=== PATIENT | female | born 1960 | race Caucasian/White ===

== ENCOUNTER 2017-11-18 10:14 | Outpatient (RCR) | payer OTHER, SELFPAY | END 2017-11-19 11:05 | LOC: SP 10:14 | PROVIDERS: Family Provider Family Medicine; PCP Family Medicine; Visit Provider Family Medicine | DX: R13.10 Dysphagia, unspecified (principal) | CPT/HCPCS: 92526 ==

== ENCOUNTER → 2018-10-06 07:24 | Outpatient (CLI) | payer OTHER, SELFPAY ==
[2018-10-06 09:27] LABS: Cholesterol 281 mg/dL (140-199); Glucose 84 mg/dL (70-100); HDL Cholesterol 58 mg/dL (40-60); LDL Cholesterol Calculated 202 mg/dL (<100); Triglycerides 104 mg/dL (35-150)
== END ==
PROVIDERS: Visit Provider Family Medicine
DX: Z13.1 Encounter for screening for diabetes mellitus (principal); Z13.220 Encounter for screening for lipoid disorders
CPT/HCPCS: 36415; 80061; 82947

== ENCOUNTER → 2018-11-13 11:41 | Outpatient (CLI) | payer OTHER, SELFPAY ==
--- NOTE | 2018-11-13 11:45 | DI.MG.S_ITS ---
BILATERAL DIGITAL SCREENING MAMMOGRAM 3D/2D WITH CAD: 11/13/2018 CLINICAL: Routine screening. Comparison is made to exams dated: 07/24/2017 mammogram, 07/23/2016 mammogram, and 03/21/2015 mammogram - [facility]. The tissue of both breasts is heterogeneously dense. This may lower the sensitivity of mammography. Current study was also evaluated with a Computer Aided Detection (CAD) system. There is possible architectural distortion in the right breast at 11 o'clock posterior depth. No other significant masses, calcifications, or other findings are seen in either breast. IMPRESSION: INCOMPLETE: NEEDS ADDITIONAL IMAGING EVALUATION The possible architectural distortion in the right breast is indeterminate. Additional views with possible ultrasound are recommended. This exam was interpreted at Station ID: [id number]. NOTE: For mammograms, a report in lay terms will be sent to the patient. Approximately 15% of breast malignancies will not be visualized mammographically. In the management of a palpable breast mass, a negative mammogram must not discourage biopsy of a clinically suspicious lesion. Electronically Signed By: Stacia giles/minerva:11/13/2018 16:05:36 letter sent: Additional Imaging Needed ACR BI-RADS Category 0: Incomplete 3340F
--- NOTE | 2018-11-13 11:46 | DI.US.S_ITS ---
PROCEDURE: US PELVIC COMPLETE INDICATIONS: ROUTINE SCREENING POST MENOPAUSAL BLEEDING TECHNIQUE: Real-time scanning was performed of the pelvic organs, with image documentation. Additional endovaginal scanning was necessary due to incomplete visualization of the adnexal and endometrial structures by transabdominal scanning. COMPARISON: [facility], US, PELVIC COMPLETE, 06/22/2010, 13:41. FINDINGS: Transabdominal scanning: Limited scanning through the kidneys shows no hydronephrosis. No pathologic free abdominal or pelvic fluid. Endovaginal scanning: Uterus: Prior hysterectomy. Ovaries: Ovaries not identified. No adnexal masses seen. IMPRESSION: Normal exam. Dictated by: Eliel HOANG Interpreted: Martín Zaragoza MD on 11/13/2018 at 13:56 Approved by: Martín Zaragoza M.D. on 11/13/2018 at 15:27
[2018-11-13 13:23] LABS: Cancer Antigen 125 9 U/mL (0-35)
== END ==
PROVIDERS: Obstetrics & Gynecology; PCP Family Medicine; Visit Provider Family Medicine
DX: Z12.31 Encounter for screening mammogram for malignant neoplasm of breast (principal); N95.0 Postmenopausal bleeding
CPT/HCPCS: 36415; 76830; 76856; 77063; 77067; 86304

== ENCOUNTER → 2018-12-11 08:06 | Outpatient (CLI) | payer OTHER, SELFPAY ==
--- NOTE | 2018-12-11 08:07 | DI.MG.S_ITS ---
UNILATERAL RIGHT DIGITAL DIAGNOSTIC MAMMOGRAM 3D/2D WITH ADDITIONAL VIEWS: 12/11/2018 CLINICAL: Additional evaluation requested from prior study. Comparison is made to exams dated: 11/13/2018 mammogram, 07/24/2017 mammogram, 07/23/2016 mammogram, and 03/21/2015 mammogram - [facility]. The tissue of right breast is heterogeneously dense. This may lower the sensitivity of mammography. There is possible architectural distortion in the right breast at 11 o'clock posterior depth. This is not seen on the additional tomosynthesis spot compression views. No other significant masses or calcifications are seen in the breast. IMPRESSION: INCOMPLETE: NEEDS ADDITIONAL IMAGING EVALUATION The possible architectural distortion in the right breast is not seen on the additional tomosynthesis spot compression views. An ultrasound is recommended. This exam was interpreted at Station ID: [id number]. NOTE: For mammograms, a report in lay terms will be sent to the patient. Approximately 15% of breast malignancies will not be visualized mammographically. In the management of a palpable breast mass, a negative mammogram must not discourage biopsy of a clinically suspicious lesion. Electronically Signed By: Steven Orozco M.D. slc/:12/11/2018 09:46:20 ACR BI-RADS Category 0: Incomplete [id number]
--- NOTE | 2018-12-11 08:07 | DI.US.S_ITS ---
LIMITED ULTRASOUND OF RIGHT BREAST: 12/11/2018 CLINICAL: Patient returns today to evaluate an architectural distortion in the right breast. Comparison is made to exams dated: 12/11/2018 mammogram, 11/13/2018 mammogram, 07/24/2017 mammogram, 07/23/2016 mammogram, and 03/21/2015 mammogram - [facility]. Real-time ultrasound of the right breast 8-11 o'clock region was performed in the region of possible architectural distortion seen on prior mammogram. Patiño scale images of the real-time examination were reviewed. No abnormalities were seen sonographically in the right breast. IMPRESSION: NEGATIVE There is no sonographic evidence of malignancy. A 1 year screening mammogram is recommended. This exam was interpreted at Station ID: [id number]. Electronically Signed By: Steven Orozco M.D. slc/:12/11/2018 10:07:57 letter sent: Normal Exam Ultrasound BI-RADS: 1 Negative
== END ==
PROVIDERS: PCP Family Medicine; Visit Provider Family Medicine
DX: R92.8 Other abnormal and inconclusive findings on diagnostic imaging of breast (principal)
CPT/HCPCS: 76642; 77065; G0279

== ENCOUNTER → 2019-03-29 10:39 | Outpatient (CLI) | payer OTHER, SELFPAY ==
--- NOTE | 2019-03-29 10:40 | DI.RAD.S_ITS ---
PROCEDURE: XR KNEE LT 3V INDICATIONS: left knee pain TECHNIQUE: 3 views of the knee were acquired. COMPARISON: [facility], , KNEE 3V LEFT, 03/24/2014, 12:11. FINDINGS: Bones: No fractures or dislocations. No suspicious bony lesions. Mild tricompartmental knee joint degeneration. Soft tissues: No joint effusion. No suspicious soft tissue calcifications. IMPRESSION: Mild degenerative joint disease. Dictated by: Tisha Arreola M.D. on 03/29/2019 at 18:30 Approved by: Tisha Arreola M.D. on 03/29/2019 at 18:31
== END ==
PROVIDERS: PCP Family Medicine; Visit Provider Family Medicine
DX: M25.562 Pain in left knee (principal); M17.12 Unilateral primary osteoarthritis, left knee
CPT/HCPCS: 73562

== ENCOUNTER → 2020-01-20 09:19 | Outpatient (CLI) | payer OTHER, SELFPAY ==
[2020-01-20 09:59] LABS: Add Manual Diff / Slide Review NO; Basophils Absolute Auto 100 /uL (0-100); Basophils Percent Auto 1.2 % (0-2); Eosinophils Absolute Auto 100 /uL (0-450); Eosinophils Percent Auto 2.2 % (2-4); Hematocrit 39.1 % (36-46); Hemoglobin 13.5 g/dL (12.0-16.0); Lymphocytes Absolute Auto 1400 /uL (1100-4500); Mean Corpuscular HGB Conc 34.4 % (30-36); Mean Corpuscular Hemoglobin 29.1 PG (26-34); Mean Corpuscular Volume 84.5 fL (80-100); Monocytes Absolute Auto 400 /uL (0-900); Monocytes Percent Auto 8.8 % (3-14); Neutrophils Absolute Auto 2600 /uL (1500-7000); Neutrophils Percent Auto 56.8 % (50-75); Platelet Count 230 X10^3/uL (150-400); Red Blood Cell Count 4.64 X10^6/uL (4.0-5.2); Red Cell Distribution Width 12.2 % (11.6-14.8); White Blood Cell Count 4.6 X10^3/uL (4.5-11.0)
[2020-01-20 10:20] LABS: Alanine Aminotransferase 20 IU/L (<35); Albumin 4.5 g/dL (3.5-5.0); Albumin Globulin Ratio 1.6 (1.0-2.8); Alkaline Phosphatase 93 U/L (38-126); Aspartate Aminotransferase 25 IU/L (14-36); BUN Creatinine Ratio 21.7 (6-22); Bilirubin Total 0.5 mg/dL (0.2-1.3); Blood Urea Nitrogen 18 mg/dL (7-17); Calcium 9.8 mg/dL (8.4-10.2); Carbon Dioxide 31 mmol/L (22-32); Chloride 105 mmol/L (98-107); Estimated Glomerular Filt Rate > 60.0 mL/min (>60); Globulin 2.9 g/dL (1.7-4.1); Glucose 93 mg/dL (70-100); HEMOLYSIS < 15 (0-50); Potassium 4.6 mmol/L (3.4-5.1); Sodium 140 mmol/L (137-145); Total Protein 7.4 g/dL (6.3-8.2)
[2020-01-20 10:21] LABS: C-Reactive Protein Quant < 0.5 mg/dL (<1.0)
[2020-01-20 10:26] LABS: Erythrocyte Sedimentation Rate 22 MM/HR (0-20)
[2020-01-20 10:47] LABS: TSH w/ Reflex to FT4 3.05 uIU/mL (0.47-4.68)
[2020-01-21 18:00] LABS: Tissue Transglutaminase IgA <2 U/mL (0-3); Tissue Transglutaminase IgG <2 U/mL (0-5)
== END ==
PROVIDERS: PCP Family Medicine; Referring Provider Family Medicine; Visit Provider Family Medicine
DX: K52.9 Noninfective gastroenteritis and colitis, unspecified (principal)
CPT/HCPCS: 36415; 80053; 83516; 84443; 85025; 85651; 86140

== ENCOUNTER → 2020-04-18 07:54 | Outpatient (CLI) | payer OTHER, SELFPAY ==
[2020-04-18 09:00] LABS: Alanine Aminotransferase 14 IU/L (<35); Albumin 3.9 g/dL (3.5-5.0); Albumin Globulin Ratio 1.3 (1.0-2.8); Alkaline Phosphatase 70 U/L (38-126); Aspartate Aminotransferase 24 IU/L (14-36); BUN Creatinine Ratio 23.4 (6-22); Bilirubin Total 0.5 mg/dL (0.2-1.3); Blood Urea Nitrogen 18 mg/dL (7-17); Calcium 9.1 mg/dL (8.4-10.2); Carbon Dioxide 31 mmol/L (22-32); Chloride 107 mmol/L (98-107); Cholesterol 266 mg/dL (140-199); Estimated Glomerular Filt Rate > 60.0 mL/min (>60); Globulin 2.9 g/dL (1.7-4.1); Glucose 92 mg/dL (70-100); HDL Cholesterol 52 mg/dL (40-60); HEMOLYSIS < 15 (0-50); LDL Cholesterol Calculated 193 mg/dL (<100); Potassium 4.5 mmol/L (3.4-5.1); Sodium 139 mmol/L (137-145); Total Protein 6.8 g/dL (6.3-8.2); Triglycerides 105 mg/dL (35-150)
== END ==
PROVIDERS: PCP Family Medicine; Referring Provider Family Medicine; Visit Provider Family Medicine
DX: E78.01 Familial hypercholesterolemia (principal)
CPT/HCPCS: 36415; 80053; 80061

== ENCOUNTER → 2020-08-11 10:45 | Outpatient (CLI) | payer OTHER, SELFPAY ==
[2020-08-11] MEDS: COVID-19 VACC #1, MRNA(MOD) 100 MCG/0.5 ML VIAL IM (10:51)
== END ==
PROVIDERS: PCP Family Medicine; Visit Provider Internal Medicine
DX: Z23 Encounter for immunization (principal)
CPT/HCPCS: 0011A; 91301

== ENCOUNTER → 2020-08-16 09:03 | Outpatient (CLI) | payer OTHER, SELFPAY ==
[2020-08-16 11:07] LABS: COVID19 -Nasal RAPID Negative (Negative)
== END ==
PROVIDERS: PCP Family Medicine; Visit Provider Surgery
DX: Z20.822 Contact with and (suspected) exposure to COVID-19 (principal)
CPT/HCPCS: 87635; C9803

== ENCOUNTER 2020-08-17 07:20 | Day surgery (SDC) | payer OTHER, SELFPAY ==
--- NOTE | 2020-08-17 | PATH_ITS ---
[facility] Accession Number: [id number] . 01 Material submitted: . colon - RANDOM COLON BIOPSIES . 02 Diagnosis: Random Colon, Biopsies: Collagenous colitis. Negative for granulomas, dysplasia and malignancy. [facility] 08/21/2020 1428 Local . 02 Electronically signed: . Keerthi Chavarria MD, Pathologist NPI- [id number] . 01 Gross description: . RANDOM COLON BIOPSIES: Received in formalin are multiple fragment(s) of valle, soft tissue measuring 0.5 x 0.5 x 0.2 cm in aggregate submitted entirely in 1 cassette(s) /QBJ 08/18/2020 0653 Local . 02 Pathologist provided ICD-10: K52.89 . 02 CPT . 883606 Performed at: 01 [facility] [address] [id number] MD Bro Matos MD Phone: [phone] Performed at: 02 [facility] [address] [address] [place], [place] [id number] MD Keerthi Chavarria MD Phone: [phone]
[2020-08-17 07:40] VITALS: BP 146/69; PULSE 57; RESP 16; TEMP 36.3; O2SAT 100; BMI 29.0
[2020-08-17] MEDS: SODIUM CHLORIDE 0.9% 1,000 ML 200 ML IV (08:01)
--- NOTE | 2020-08-17 08:11 | PM.HP.1 ---
History of Present Illness History of Present Illness Date Patient Seen: 08/17/20 Time Patient Seen: 08:11 Chief complaint: SDC Narrative: This is a 60-year-old woman with history of colonoscopy in 2013, with no significant findings per the patient. She was told to have a repeat scope in 5-10 years. Over the past year she has had problems with chronic diarrhea, of unknown etiology. She said she has had ?tons of blood work? does not recall having stool studies or change in medications. She denies melena, hematochezia, unexplained abdominal pain, unexplained weight loss. ROS: Positive for shortness of breath. Thirteen system review is otherwise negative other than as mentioned below and in HPI. PE: GENERAL: Well groomed and cooperative. Appears stated age. Answers questions promptly and appropriately. Vital signs noted. HENT: Normocephalic, atraumatic. Hearing intact. EYES: Conjunctiva pink, sclera white, no periorbital swelling. CARDIOVASCULAR: Regular rate. No pedal edema. RESPIRATORY: Non-tachypneic, breathing comfortably on room air. GASTROINTESTINAL: Abdomen soft and non-distended GENITALURINARY: No flank tenderness. MUSCULOSKELETAL: Equal tone and mass bilaterally. SKIN: Warm, dry, soft, appropriate color for ethnicity. No other lesions, rashes, or wounds. NEURO: Alert and Oriented X 3. No gross sensory deficits, or cognitive issues. PSYCH: Appropriate affect and mood. Patient History Medical History Anxiety Clavicle fracture Depression Familial hypercholesteremia Osteoarthritis Perimenopausal Rib fracture Surgical History Anesthesia History of bilateral tubal ligation (1993) History of colonoscopy with polypectomy (04/04/14) Status post dilation and curettage (07/17/10) Status post laparoscopic supracervical hysterectomy (07/24/10) Status post wrist surgery (2005) Family & Social History Family History Brother Age: 64 High cholesterol Brother Age: 61 High cholesterol Mother Age: 85 Osteoporosis Social History: household members spouse lives independently Yes caregiver/support person No Tobacco & Substance use: Smoking Status Former smoker alcohol intake current alcohol intake frequency a few times a month Substance Use Type does not use Meds Home Medications and Allergies Home Medications Medication Instructions Recorded Confirmed Type venlafaxine 37.5 mg See Rx Instructions .ROUTE 08/07/20 08/17/20 Rx capsule,extended release 24 hr .COMPLEX #30 cap Allergies Allergy/AdvReac Type Severity Reaction Status Date / Time Tetanus Vaccines and Toxoid Allergy Unknown Verified 08/17/20 07:35 [TETANUS VACCINES & TOXOID] clonidine [CLONIDINE] AdvReac Unknown leg Verified 08/17/20 07:35 cramps, nightmares Exam Vital Signs (past 8 hours): - 08/17/20 07:40 Temperature 97.3 F L Pulse Rate 57 L Respiratory Rate 16 Blood Pressure 146/69 H Pulse Oximetry 100 Oxygen Delivery Method Room Air Assessment & Plan Assessment and plan (1) Chronic diarrhea: Status: Acute Assessment & Plan narrative: Risks and benefits of screening colonoscopy and possible polypectomy were discussed with the patient including risk of bleeding, perforation, need for additional procedures, risks of anesthesia. The patient desires to proceed with the colonoscopy procedure. COVID-19 COVID-19 status: Negative Result date/Date tested (Pos, Neg/Pending): 08/16/20 Time Spent With Patient Time with patient: 15-24 minutes Quality VTE Deep Vein Thrombosis/Pulmonary Embolism Present on Admission: No
--- NOTE | 2020-08-17 08:13 | PM.OP.ENDO ---
Operative Date/Time/Diagnoses Date of procedure: 08/17/20 Time of procedure: 08:13 Pre-op diagnosis: Chronic diarrhea, due for screening colonoscopy Post-op diagnosis: other (Normal appearing colon) Procedure & Clinicians Study performed: Colonoscopy Procedural sedation performed by the endoscopist Random biopsies of colon with standard forceps Same procedure as scheduled: Yes Indications: Chronic diarrhea, due for screening colonoscopy Surgeon: Hetal Johnson Procedure Notes SCOAP/Timeout: Performed Procedure in detail: The patient was brought to the room and placed in left lateral decubitus position with all bony prominences padded. A time-out was performed and then the patient was given procedural sedation starting with 4 mg of Versed an100] mcg of fentanyl. An additional 2 mg of Versed and 50 micro g of fentanyl were given during the procedure. Vitals were monitored throughout the procedure and remained stable. Once adequately sedated, the procedure was begun. A rectal exam was performed revealing [no abnormalities. The colonoscope was then introduced to the rectum and advanced to the cecum in the usual fashion.]The cecum was identified by the appendiceal orifice, the mucosal tri-fold, and the ileocecal valve. The scope was then retracted while rotating side to side and examining each mucosal fold. No visible abnormalities were seen in the colon. Random biopsies were taken to rule out microscopic colitis. [ At the conclusion of the procedure retroflexion was performed and moderate grade 2-3 internal hemorrhoids without stigmata of bleeding were seen. The scope was then withdrawn from the rectum the procedure was concluded. The patient tolerated the procedure well and was transferred to the PACU in stable condition. Scope withdrawal time: 6 Sedation minutes: 21 Findings: other findings (Normal appearing colon) Specimen(s): other (Random biopsies) Complications: none Post-procedure Recommendations: Colonscopy in 10 years and Other recommendation (Additional recommendations will be sent to the patient and her primary doctor depending on biopsy results) Follow up: as needed Disposition: PACU
[2020-08-17] MEDS: MIDAZOLAM 5 MG/5 ML VIAL IV (08:31)
[2020-08-17] MEDS: fentaNYL 250 MCG/5 ML INJ IV (08:31)
[2020-08-17 08:48] VITALS: BP 113/68; PULSE 55; RESP 10; TEMP 36.2; O2SAT 100
[2020-08-17 08:49] VITALS: BP 106/56; PULSE 56; RESP 10; O2SAT 100
[2020-08-17 08:54] VITALS: BP 111/58; PULSE 58; RESP 10; O2SAT 99
--- NOTE | 2020-08-17 08:59 | SUR.PHASEI ---
received to PACU after colonoscopy with sedation. Pt awakens easily to verbal stimuli. Report from JOSUE Hines.
[2020-08-17 09:01] VITALS: BP 129/64; PULSE 62; RESP 12; O2SAT 100
[2020-08-17 09:02] VITALS: BP 128/64; PULSE 61; RESP 10; TEMP 37.1; O2SAT 100
== END 2020-08-17 09:29 | disposition home or self-care (01) ==
PROVIDERS: PCP Family Medicine; Referring Provider Family Medicine; Visit Provider Surgery
PROC: 0DJD8ZZ Inspection of Lower Intestinal Tract, Via Natural or Artificial Opening Endoscopic (ICD-10-PCS; CPT 45378; principal; 2020-08-17 08:30)
DX: K52.831 Collagenous colitis (principal); K64.0 First degree hemorrhoids
CPT/HCPCS: 45380; 99152; J2250; J3010

== ENCOUNTER → 2020-09-08 10:45 | Outpatient (CLI) | payer OTHER, SELFPAY ==
[2020-09-08] MEDS: COVID-19 VACC #2, MRNA(MOD) 100 MCG/0.5 ML VIAL IM (10:57)
== END ==
PROVIDERS: PCP Family Medicine; Visit Provider Internal Medicine
DX: Z23 Encounter for immunization (principal)
CPT/HCPCS: 0012A; 91301

== ENCOUNTER → 2021-05-09 07:54 | Outpatient (CLI) | payer OTHER, SELFPAY ==
[2021-05-09 08:47] LABS: Alanine Aminotransferase 13 IU/L (<35); Albumin Globulin Ratio 1.5 (1.0-2.8); Alkaline Phosphatase 67 U/L (38-126); Aspartate Aminotransferase 20 IU/L (14-36); BUN Creatinine Ratio 16.5 (6-22); Bilirubin Total 0.6 mg/dL (0.2-1.3); Blood Urea Nitrogen 15 mg/dL (7-17); Calcium 9.3 mg/dL (8.4-10.2); Carbon Dioxide 31 mmol/L (22-32); Chloride 107 mmol/L (98-107); Cholesterol 270 mg/dL (140-199); Estimated Glomerular Filt Rate > 60.0 mL/min (>60); Globulin 2.7 g/dL (1.7-4.1); Glucose 91 mg/dL (80-110); HDL Cholesterol 61 mg/dL (40-60); HEMOLYSIS < 15 (0-50); LDL Cholesterol Calculated 187 mg/dL (<100); Sodium 139 mmol/L (137-145); Total Protein 6.7 g/dL (6.3-8.2); Triglycerides 110 mg/dL (35-150)
== END ==
PROVIDERS: PCP Family Medicine; Referring Provider Family Medicine; Visit Provider Family Medicine
DX: R03.0 Elevated blood-pressure reading, without diagnosis of hypertension (principal)
CPT/HCPCS: 36415; 80053; 80061

== ENCOUNTER → 2021-05-11 08:53 | Outpatient (CLI) | payer OTHER, SELFPAY ==
[2021-05-11 09:40] LABS: Creatinine Urine Random 69.6 mg/dL
[2021-05-11 09:45] LABS: Microalbumi Creatinin Ratio Ur 8.6 ug/mg CR (<30); Microalbumin Urine Random 0.6 mg/dL (0-1.6)
== END ==
PROVIDERS: PCP Family Medicine; Referring Provider Family Medicine; Visit Provider Family Medicine
DX: R03.0 Elevated blood-pressure reading, without diagnosis of hypertension (principal)
CPT/HCPCS: 82043; 82570

== ENCOUNTER → 2022-01-23 13:54 | Outpatient (CLI) | payer OTHER, SELFPAY ==
--- NOTE | 2022-01-23 13:55 | DI.RAD.S_ITS ---
PROCEDURE: XR CLAVICLE RT INDICATIONS: Fell off horse 01/14; possible fx R clavicle TECHNIQUE: 2 views of the clavicle were acquired. COMPARISON: [facility], , CLAVICLE RIGHT 2 VIEWS, 12/04/2015, 10:56. FINDINGS: Bones: Old displaced fracture involving mid clavicular shaft is again seen not significantly changed in alignment compared to 2016 study. No new fracture or dislocation is seen. No osseous union at fracture site is noted. Soft tissues: No suspicious soft tissue calcifications. IMPRESSION: Chronic depressed mid clavicular shaft fracture unchanged in alignment compared to 2016 study. No new fracture or dislocation. Dictated by: Baltazar Ravi M.D. on 01/23/2022 at 16:08 Approved by: Baltazar Ravi M.D. on 01/23/2022 at 16:09
== END ==
PROVIDERS: PCP Family Medicine; Referring Provider Physician Assistant; Visit Provider Physician Assistant
DX: S06.0X9A Concussion with loss of consciousness of unspecified duration, initial encounter (principal); S16.1XXA Strain of muscle, fascia and tendon at neck level, initial encounter; V80.010A Animal-rider injured by fall from or being thrown from horse in noncollision accident, initial encounter; M84.411D Pathological fracture, right shoulder, subsequent encounter for fracture with routine healing
CPT/HCPCS: 73000

== ENCOUNTER → 2022-12-06 13:03 | Outpatient (CLI) | payer OTHER, SELFPAY ==
--- NOTE | 2022-12-06 13:04 | DI.MG.S_ITS ---
BILATERAL DIGITAL SCREENING MAMMOGRAM 3D/2D WITH CAD: 12/06/2022 CLINICAL: Routine screening. Comparison is made to exams dated: 12/11/2018 mammogram, 11/13/2018 mammogram, and 07/24/2017 mammogram - [facility]. Both breasts are heterogeneously dense, which may obscure small masses (category c / 51-75% glandular tissue). Current study was also evaluated with a Computer Aided Detection (CAD) system. No significant masses, calcifications, or other findings are seen in either breast. There has been no significant interval change. IMPRESSION: NEGATIVE There is no mammographic evidence of malignancy. A 1 year screening mammogram is recommended. Based on the Tyrer Cuzick model (a risk assessment model) the patient's lifetime risk is 8.9% and her 10 year risk is 3.8%. According to the ACR, ACS, and NCCN guidelines, an annual breast MRI exam along with mammogram is recommended if the patient's lifetime risk is 20% or greater. This exam was interpreted at Station ID: [id number]. NOTE: For mammograms, a report in lay terms will be sent to the patient. Approximately 15% of breast malignancies will not be visualized mammographically. In the management of a palpable breast mass, a negative mammogram must not discourage biopsy of a clinically suspicious lesion. Electronically Signed By: Ivonne prince/minerva:12/06/2022 16:14:54 letter sent: Normal Exam ACR BI-RADS Category 1: Negative [id number]
== END ==
PROVIDERS: PCP Family Medicine; Referring Provider Family Medicine; Visit Provider Family Medicine
DX: Z12.31 Encounter for screening mammogram for malignant neoplasm of breast (principal)
CPT/HCPCS: 77063; 77067

== ENCOUNTER → 2023-12-26 07:54 | Outpatient (CLI) | payer OTHER, SELFPAY ==
[2023-12-26 09:09] LABS: Cholesterol 256 mg/dL (140-199); Glucose 89 mg/dL (80-110); HDL Cholesterol 52 mg/dL (40-60); LDL Cholesterol Calculated 177 mg/dL (<100); Triglycerides 134 mg/dL (35-150)
== END ==
LOC: LAB 07:56
PROVIDERS: PCP Family Medicine; Referring Provider Family Medicine; Visit Provider Family Medicine
DX: E78.01 Familial hypercholesterolemia (principal); Z13.1 Encounter for screening for diabetes mellitus
CPT/HCPCS: 36415; 80061; 82947